=== PATIENT | male | born 1985 | race Hispanic/Latino ===

== ENCOUNTER 2018-06-14 17:17 | Emergency (ER) | payer SELFPAY ==
[~2018-06-14] VITALS: Ht 166.4 cm; Wt 90.0 kg
[~2018-06-14 17:17] MED LIST: BACTRIM DS1 TAB PO; KURIC21 EX; TERBINAFINE HC250 MG OR; TRIAM/NYSTAT TOP
[2018-06-14] MEDS ORDERED: CEPHALEXIN500 M1 PO (18:17)
[2018-06-14 18:57] VITALS: BP 133/86
== END 2018-06-14 18:55 | disposition home or self-care (01) | DRG 605 ==
LOC: ED 17:17
PROC: 0HQGXZZ Repair Left Hand Skin, External Approach (ICD-10-PCS; principal; 2018-06-14)
DX: S61.412A Laceration without foreign body of left hand, initial encounter (principal); R53.1 Weakness; W26.0XXA Contact with knife, initial encounter; Y93.9 Activity, unspecified; Y92.009 Unspecified place in unspecified non-institutional (private) residence as the place of occurrence of the external cause

== ENCOUNTER 2022-06-22 18:19 | Emergency (ER) | payer OTHER ==
[~2022-06-22] VITALS: Ht 166.4 cm; Wt 81.6 kg
[~2022-06-22 18:19] MED LIST changes: +CEPHALEXIN500 M1 PO
[2022-06-22 18:32] VITALS: BP 162/97
[2022-06-22] MEDS ORDERED: LORTAB 1010 MG PO (18:42)
[2022-06-22] MEDS ORDERED: CYCLOBENZAPRINE10 MG PO (18:42)
[2022-06-22 18:45] VITALS: BP 124/85
[2022-06-22 19:00] VITALS: BP 129/90
[2022-06-22 19:15] VITALS: BP 122/80
[2022-06-22 19:30] VITALS: BP 124/86
== END 2022-06-22 19:36 | disposition home or self-care (01) | DRG 552 ==
LOC: ED 18:19
DX: M54.2 Cervicalgia (principal); M54.9 Dorsalgia, unspecified